=== PATIENT | male | born 1975 | race Caucasian/White ===

== ENCOUNTER 2017-06-07 19:15 | Emergency (ER) | payer MEDICAID ==
[~2017-06-07] VITALS: Ht 180.3 cm; Wt 90.9 kg
[2017-06-07] MEDS ORDERED: LORazepam 2 MG/ML, 1ML ONE (19:54)
[2017-06-07] MEDS ORDERED: SODIUM CHLORIDE 0.9% 1,000ML IVBOLUS ONE (20:00)
[2017-06-07] MEDS ORDERED: LORazepam 2 MG/ML, 1ML IVPush ONE (20:00)
[2017-06-07] MEDS ORDERED: SODIUM CHLORIDE FLUSH 10ML SYR IVF ONE (20:00)
[2017-06-07 20:10] LABS: BLOOD UREA NITROGEN 10 mg/dL (7-18)
[2017-06-07 20:50] LABS: HEMATOCRIT 41.6 % (39.2-51.8); HEMOGLOBIN 14.1 g/dL (13.7-18.0); WHITE BLOOD COUNT 7.9 x10^3/uL (3.4-10)
[2017-06-07 21:07] VITALS: BP 127/91
[2017-06-07 21:14] LABS: DIFF TOTAL CELLS COUNTED 100 CELL DIFF
[2017-06-07 21:19] LABS: VERIFY COUNTS? YES
[2017-06-07 21:20] LABS: GIANT PLATELETS 1+; POLYCHROMASIA 1+
[2017-06-07] MEDS ORDERED: IBUPROFEN 200 MG TABLET ONE (21:29)
[2017-06-07] MEDS ORDERED: IBUPROFEN 200 MG TABLET PO ONE (21:30)
== END 2017-06-07 21:51 | disposition home or self-care (01) ==
LOC: ED 19:56
DX: R56.9 Unspecified convulsions (principal)
CPT/HCPCS: 36415; 70450; 71010; 80048; 80307; 82040; 85025; 93005; 96361; 96374; 99285; J2060; J7030; G0479